=== PATIENT | female | born 1985 | race Caucasian/White ===

== ENCOUNTER 2019-06-21 21:30 | Emergency (ER) | payer OTHER ==
--- NOTE | 2019-06-21 23:15 | ER Document Report ---
ED General - General Chief Complaint: OB Problem (<20wks) Stated Complaint: DIZZINESS Time Seen by Provider: 06/21/19 23:15 TRAVEL OUTSIDE OF THE [place] IN LAST 30 DAYS: No - HPI Patient complains to provider of: vaginal bleeding in Notes: sharla is a presenting to ED for evaluation of lower abdominal cramping and some light intermittent vaginal bleeding she is approx 6-7 weeks by LMP has not established w/ obgyn yet no fever, chills she does feel dizzy intermittently some mild nausea but minimal vomiting she denies back pain and notes that her abdomen is a cramping only kind of pain and never gets too severe denies urinary pain she denies receiving rhogam w/ previous pregnancies but is unsure of blood type - Related Data Allergies/Adverse Reactions: Sulfa (Sulfonamide Antibiotics) Allergy (Verified 06/21/19 22:19) Past Medical History - General Last Menstrual Period: 05/03/19 - Social History Smoking Status: Never Smoker Chew tobacco use (# tins/day): No Frequency of alcohol use: None Drug Abuse: None Family History: Reviewed & Not Pertinent Patient has suicidal ideation: No Patient has homicidal ideation: No Review of Systems - Review of Systems Constitutional: No symptoms reported EENT: No symptoms reported Cardiovascular: No symptoms reported Respiratory: No symptoms reported Gastrointestinal: Abdominal pain, Nausea. denies: Vomiting Genitourinary: No symptoms reported Female Genitourinary: Vaginal bleeding Musculoskeletal: No symptoms reported Skin: No symptoms reported Hematologic/Lymphatic: No symptoms reported Neurological/Psychological: No symptoms reported Physical Exam - Vital signs Vitals: Temp Pulse Resp BP Pulse Ox 99.2 F 78 20 121/56 L 100 06/21/19 22:27 06/21/19 22:27 06/21/19 22:27 06/21/19 22:27 06/21/19 22:27 Interpretation: Normal - General General appearance: Appears well, Alert - HEENT Head: Normocephalic, Atraumatic Eyes: Normal Pupils: PERRL - Respiratory Respiratory status: No respiratory distress Chest status: Nontender Breath sounds: Normal Chest palpation: Normal - Cardiovascular Rhythm: Regular Heart sounds: Normal auscultation Murmur: No - Abdominal Inspection: Normal Distension: No distension Bowel sounds: Normal Tenderness: Nontender Organomegaly: No organomegaly - Back Back: Normal, Nontender - Extremities General upper extremity: Normal inspection, Nontender, Normal color, Normal ROM, Normal temperature General lower extremity: Normal inspection, Nontender, Normal color, Normal ROM, Normal temperature, Normal weight bearing. No: Rk's sign - Neurological Neuro grossly intact: Yes Cognition: Normal Orientation: AAOx4 Eldena Coma Scale Eye Opening: Spontaneous Avery Coma Scale Verbal: Oriented Eldena Coma Scale Motor: Obeys Commands Avery Coma Scale Total: 15 Speech: Normal Motor strength normal: LUE, RUE, LLE, RLE Sensory: Normal - Psychological Associated symptoms: Normal affect, Normal mood - Skin Skin Temperature: Warm Skin Moisture: Dry Skin Color: Normal Course - Re-evaluation Re-evalutation: 06/22/19 00:59 well appearing patient with IUP on US recommend outpt obgyn follow up for care - Vital Signs Vital signs: Temp Pulse Resp BP Pulse Ox 99.2 F 78 20 121/56 L 100 06/21/19 22:27 06/21/19 22:27 06/21/19 22:27 06/21/19 22:27 06/21/19 22:27 - Laboratory Result Diagrams: 06/21/19 22:38 06/21/19 22:45 Laboratory results interpreted by me: 06/21/19 06/21/19 06/21/19 22:38 22:42 22:45 WBC 13.3 H Absolute Neuts (auto) 8.8 H Sodium 136.9 L Beta HCG, Quant Urine HCG, Qual POSITIVE H 06/21/19 22:45 WBC Absolute Neuts (auto) Sodium Beta HCG, Quant 590898.00 H Urine HCG, Qual - Diagnostic Test Radiology reviewed: Image reviewed, Reports reviewed Discharge - Discharge Clinical Impression: Threatened Condition: Stable Disposition: HOME, SELF-CARE Instructions: Bleeding During Early ([facility]), Threatened Miscarriage ([facility]) Additional Instructions: follow up with obgyn as scheduled return to the ED with worsening take a vitamin daily Referrals: LEIA SABA MD [ACTIVE STAFF] - Follow up as needed
[2019-06-21 23:18] LABS: ABSOLUTE BASOPHILS # (AUTO) 0.1 10^3/uL (0.0-0.2); ABSOLUTE EOSINOPHILS # (AUTO) 0.2 10^3/uL (0.0-0.6); ABSOLUTE LYMPHOCYTES (AUTO) 3.3 10^3/uL (0.5-4.7); ABSOLUTE MONOCYTES (AUTO) 0.9 10^3/uL (0.1-1.4); ABSOLUTE NEUT (AUTO) 8.8 10^3/uL (1.7-8.2); BASOPHILS % (AUTO) 0.4 % (0-2); EOSINOPHILS % (AUTO) 1.7 % (0-6); HEMATOCRIT 37.2 % (36.0-47.0); HEMOGLOBIN 12.4 g/dL (12.0-15.5); LYMPHOCYTES % (AUTO) 24.9 % (13-45); MEAN CORPUSCULAR HGB CONC 33.3 g/dL (32.0-36.0); MEAN CORPUSCULAR VOLUME 87 fl (80-97); MONOCYTES % (AUTO) 7.1 % (3-13); PLATELET COUNT 320 10^3/uL (150-450); RED BLOOD COUNT 4.26 10^6/uL (3.72-5.28); RED CELL DISTRIBUTION WIDTH 13.4 % (11.5-14.0); SEGMENTED NEUTROPHILS % (AUTO) 65.9 % (42-78); TOTAL CELLS COUNTED % (AUTO) 100 %; WHITE BLOOD COUNT 13.3 10^3/uL (4.0-10.5)
[2019-06-21 23:24] LABS: APPEARANCE,URINE CLEAR; BILIRUBIN,URINE NEGATIVE (NEGATIVE); COLOR,URINE STRAW; GLUCOSE, URINE NEGATIVE (NEGATIVE); KETONES,URINE NEGATIVE (NEGATIVE); LEUKOCYTE ESTERASE,URINE NEGATIVE (NEGATIVE); NITRITE,URINE NEGATIVE (NEGATIVE); PROTEIN,URINE NEGATIVE (NEGATIVE); UROBILINOGEN,URINE NEGATIVE mg/dL (<2.0)
[2019-06-21] MEDS ORDERED: NORMAL SALINE 1000 ML 1,000 ML IV ONE (23:26)
[2019-06-21 23:36] LABS: ALBUMIN 4.4 g/dL (3.5-5.0); ALKALINE PHOSPHATASE 62 U/L (38-126); ANION GAP 10 (5-19); ASPARTATE AMINO TRANSFERASE 28 U/L (14-36); BILIRUBIN,DIRECT 0.1 mg/dL (0.0-0.4); BILIRUBIN,TOTAL 0.3 mg/dL (0.2-1.3); BLOOD UREA NITROGEN 12 mg/dL (7-20); CALCIUM 9.9 mg/dL (8.4-10.2); CARBON DIOXIDE 27 mmol/L (22-30); CHLORIDE 100 mmol/L (98-107); GLUCOSE 87 mg/dL (75-110); TOTAL PROTEIN 7.7 g/dL (6.3-8.2)
--- NOTE | 2019-06-22 00:43 | RADIOLOGY REPORT (SQ) ---
EXAM DESCRIPTION: US LESS THAN 14 WEEKS COMPLETED DATE/TME: 06/21/2019 00:00 CLINICAL HISTORY: 33 years Female, vaginal bleeding/ COMPARISON: None TECHNIQUE: Transabdominal. LIMITATIONS: None. FINDINGS: Living intrauterine fetus measures 6w6d with JUDI of 02/09/2020. Cardiac activity is 147-bpm. Maxeys-rump length is 0.85-cm. 4.4-cm right ovary, 3.1-cm left ovary, 2.6-cm likely right corpus luteum, 3.2-cm cervical length, and no free fluid appear otherwise unremarkable. IMPRESSION: Living 1st trimester intrauterine gestation. No evidence of complication.
[2019-06-22 01:42] VITALS: BP 94/52
== END 2019-06-22 01:42 | disposition home or self-care (01) ==
LOC: ER 21:30
DX: O20.0 Threatened abortion (principal); O26.891 Other specified pregnancy related conditions, first trimester; R10.30 Lower abdominal pain, unspecified; R11.0 Nausea; Z3A.01 Less than 8 weeks gestation of pregnancy; Z88.2 Allergy status to sulfonamides
CPT/HCPCS: 99284; 96360; 36415; 84702; 85025; 81025; 80053; 81001; 76801; 93976; J7030

== ENCOUNTER 2019-08-30 17:17 | Emergency (ER) | payer OTHER, MEDICAID ==
[2019-08-30] MEDS ORDERED: NORMAL SALINE 1000 ML 1,000 ML IV ONE (18:32)
--- NOTE | 2019-08-30 18:34 | ER Document Report ---
ED Medical Screen (RME) - General Chief Complaint: Palpitations Stated Complaint: HIGH HEART RATE Time Seen by Provider: 08/30/19 18:28 Mode of Arrival: Ambulatory Information source: Patient Notes: Patient presents complaining of rapid heart rate. Patient states that she gets about 2 episodes a day for the past week in which her heart rate will race and then come back down to normal. Patient states that she does get nauseated and feel lightheaded. Patient is currently 17 weeks . Patient denies any complications during the thus far. I have greeted and performed a rapid initial assessment of this patient. A comprehensive ED assessment and evaluation of the patient, analysis of test results and completion of the medical decision making process will be conducted by additional ED providers. TRAVEL OUTSIDE OF THE [place] IN LAST 30 DAYS: No - Related Data Allergies/Adverse Reactions: Sulfa (Sulfonamide Antibiotics) Allergy (Verified 08/30/19 18:21) Home Medications: Past Medical History - Social History Chew tobacco use (# tins/day): No Frequency of alcohol use: None Drug Abuse: None Physical Exam - Vital signs Vitals: Temp Resp Pulse Ox 98.4 F 20 99 08/30/19 17:17 08/30/19 17:17 08/30/19 17:17 - General General appearance: Appears well, Alert In distress: None - Cardiovascular Rhythm: Regular. No: Tachycardia Heart sounds: S1 appreciated, S2 appreciated Course - Vital Signs Vital signs: Temp Pulse Resp BP Pulse Ox 98.4 F 76 20 129/63 H 99 08/30/19 17:36 08/30/19 17:36 08/30/19 17:36 08/30/19 17:36 08/30/19 17:36
[2019-08-30 19:13] LABS: ABSOLUTE BASOPHILS # (AUTO) 0.2 10^3/uL (0.0-0.2); ABSOLUTE EOSINOPHILS # (AUTO) 0.2 10^3/uL (0.0-0.6); ABSOLUTE NEUT (AUTO) 9.7 10^3/uL (1.7-8.2); BASOPHILS % (AUTO) 1.1 % (0-2); EOSINOPHILS % (AUTO) 1.6 % (0-6); HEMOGLOBIN 11.4 g/dL (12.0-15.5); LYMPHOCYTES % (AUTO) 21.4 % (13-45); MEAN CORPUSCULAR HEMOGLOBIN 29.7 pg (27.0-33.4); MEAN CORPUSCULAR HGB CONC 33.5 g/dL (32.0-36.0); MEAN CORPUSCULAR VOLUME 89 fl (80-97); MONOCYTES % (AUTO) 7.3 % (3-13); PLATELET COUNT 264 10^3/uL (150-450); RED BLOOD COUNT 3.83 10^6/uL (3.72-5.28); RED CELL DISTRIBUTION WIDTH 13.5 % (11.5-14.0); SEGMENTED NEUTROPHILS % (AUTO) 68.6 % (42-78); TOTAL CELLS COUNTED % (AUTO) 100 %; WHITE BLOOD COUNT 14.1 10^3/uL (4.0-10.5)
[2019-08-30 19:48] LABS: ANION GAP 10 (5-19); BLOOD UREA NITROGEN 12 mg/dL (7-20); CALCIUM 9.6 mg/dL (8.4-10.2); CARBON DIOXIDE 23 mmol/L (22-30); CHLORIDE 102 mmol/L (98-107); GLUCOSE 90 mg/dL (75-110); POTASSIUM 3.8 mmol/L (3.6-5.0)
--- NOTE | 2019-08-30 20:06 | EKG REPORT ---
SEVERITY:- NORMAL ECG - SINUS RHYTHM : Confirmed by: Sumanth Armendariz 30-Aug-2019 20:05:47
--- NOTE | 2019-08-30 20:27 | ER Document Report ---
ED General - General Chief Complaint: Palpitations Stated Complaint: HIGH HEART RATE Time Seen by Provider: 08/30/19 18:28 Primary Care Provider: ANUSHKA ASHLEY MD [Primary Care Provider] - Follow up as needed Mode of Arrival: Ambulatory Notes: Patient is a 33-year-old female that comes emergency department for chief complaint of episodes where she will feel lightheaded and she will feel like her heart rate elevates. She states this has happened a couple times a day intermittently over the past week or so. She denies having this in the past. She is at 17 weeks gestation at this time. She denies abdominal pain, chest pain, shortness of breath, passing out, fever, vaginal bleeding or discharge. She denies any current symptoms. She states once the dizziness became bad enough she had to lie down and then it resolved. She is not on any daily medications, she reports rare caffeine, she states she is staying hydrated. TRAVEL OUTSIDE OF THE [place] IN LAST 30 DAYS: No - Related Data Allergies/Adverse Reactions: Sulfa (Sulfonamide Antibiotics) Allergy (Verified 08/30/19 18:21) Home Medications: Past Medical History - General Information source: Patient - Social History Smoking Status: Former Smoker Chew tobacco use (# tins/day): No Frequency of alcohol use: None Drug Abuse: None Lives with: Family Family History: Reviewed & Not Pertinent Patient has suicidal ideation: No Patient has homicidal ideation: No Surgical Hx: Negative - Immunizations Immunizations up to date: Yes Hx Diphtheria, Pertussis, Tetanus Vaccination: Yes Review of Systems - Review of Systems Constitutional: See HPI EENT: No symptoms reported Cardiovascular: See HPI Respiratory: No symptoms reported Gastrointestinal: No symptoms reported Genitourinary: No symptoms reported Female Genitourinary: No symptoms reported Musculoskeletal: No symptoms reported Skin: No symptoms reported Hematologic/Lymphatic: No symptoms reported Neurological/Psychological: See HPI Physical Exam - Vital signs Vitals: Temp Resp Pulse Ox 98.4 F 20 99 08/30/19 17:17 08/30/19 17:17 08/30/19 17:17 - Notes Notes: GENERAL: Alert, interacts well. No acute distress. HEAD: Normocephalic, atraumatic. EYES: Pupils equal, round, and reactive to light. Extraocular movements intact. ENT: Oral mucosa moist, tongue midline. Oropharynx unremarkable. Airway patent. NECK: Full range of motion. Supple. Trachea midline. LUNGS: Clear to auscultation bilaterally, no wheezes, rales, or rhonchi. No respiratory distress. HEART: Regular rate and rhythm. No murmur ABDOMEN: Soft, non-tender. Bowel sounds present in all 4 quadrants. EXTREMITIES: Moves all 4 extremities spontaneously. No edema, normal radial and dorsalis pedis pulses bilaterally. No cyanosis. BACK: no cervical, thoracic, lumbar midline tenderness. No saddle anesthesia, normal distal neurovascular exam. Moves all extremities in full range of motion. NEUROLOGICAL: Alert and oriented x3. Normal speech. Cranial nerves II through XII grossly intact. PSYCH: Normal affect, normal mood. SKIN: Warm, dry, normal turgor. No rashes or lesions noted. Course - Re-evaluation Re-evalutation: Vital signs unremarkable and monitoring on the monitor here is unremarkable. EKG unremarkable. CBC, chemistry unremarkable. Patient with no current symptoms. Patient with description of symptoms where she will become lightheaded, heart rate will elevate, and she can make the symptoms resolved by lying flat. Patient second trimester . She has no chest pain, syncope, shortness of breath, tachycardia, lower extremity swelling, recent travel or surgery, history of blood clots, smoking, or family history of blood clots. I have a very low suspicion of acute intrathoracic etiology. I discussed at length with patient. Discussed details, work-up, recommendations, precautions, and return instructions. Patient states appreciation and agreement and requests discharge. Stable time of discharge. She is going home with her who also states understanding and agreement. - Vital Signs Vital signs: Temp Pulse Resp BP Pulse Ox 98.2 F 80 20 109/60 98 08/30/19 20:42 08/30/19 20:42 08/30/19 20:42 08/30/19 20:42 08/30/19 20:42 - Laboratory Result Diagrams: 08/30/19 19:00 08/30/19 19:00 Laboratory results interpreted by me: 08/30/19 08/30/19 19:00 19:00 WBC 14.1 H Hgb 11.4 L Hct 34.0 L Absolute Neuts (auto) 9.7 H Sodium 135.4 L - EKG Interpretation by Me Additional EKG results interpreted by me: EKG shows sinus rhythm at a rate of 75, QTC of 438, normal axis, no T wave inversions or ST segment changes in consecutive leads. Machine reads as normal. Discharge - Discharge Clinical Impression: Rapid heart rate, Dizziness Condition: Stable Disposition: HOME, SELF-CARE Additional Instructions: Your evaluation here on monitoring, EKG, and labs are reassuring. Your symptoms are suggestive of being related to blood return which unfortunately could worsen as you progress in but hopefully will resolve after delivery. Remember to stay hydrated and not skip meals, if you do become lightheaded lay down and put your feet above the level of your heart if possible. Follow-up with your [facility] for additional evaluation and management. Return if you worsen including chest pain, difficulty breathing, passing out, or any other concerning or worsening symptoms. Referrals: ANUSHKA ASHLEY MD [Primary Care Provider] - Follow up as needed
[2019-08-30 20:44] VITALS: BP 109/60
== END 2019-08-30 20:47 | disposition home or self-care (01) ==
LOC: ER 17:17
DX: O26.92 Pregnancy related conditions, unspecified, second trimester (principal); R00.0 Tachycardia, unspecified; R42 Dizziness and giddiness; R00.2 Palpitations; Z3A.17 17 weeks gestation of pregnancy; Z88.2 Allergy status to sulfonamides
CPT/HCPCS: 93005; 99285; 96360; 36415; 85025; 80048; 93010; J7030

== ENCOUNTER 2019-11-28 18:49 | Outpatient (CLI) | payer OTHER, MEDICAID ==
[2019-11-28 19:43] LABS: APPEARANCE,URINE CLEAR; BILIRUBIN,URINE NEGATIVE (NEGATIVE); COLOR,URINE YELLOW; GLUCOSE, URINE NEGATIVE (NEGATIVE); KETONES,URINE NEGATIVE (NEGATIVE); LEUKOCYTE ESTERASE,URINE NEGATIVE (NEGATIVE); NITRITE,URINE NEGATIVE (NEGATIVE); PROTEIN,URINE NEGATIVE (NEGATIVE); URINE SPECIFIC GRAVITY 1.013; UROBILINOGEN,URINE NEGATIVE mg/dL (<2.0)
[2019-11-28 19:59] LABS: URINE AMPHETAMINES SCREEN NEGATIVE; URINE BARBITURATES SCREEN NEGATIVE; URINE BENZODIAZEPINES SCREEN NEGATIVE; URINE COCAINE SCREEN NEGATIVE; URINE MARIJUANA (THC) SCREEN NEGATIVE; URINE METHADONE SCREEN NEGATIVE; URINE PHENCYCLIDINE SCREEN NEGATIVE
== END 2019-11-28 20:03 | disposition home or self-care (01) ==
LOC: LC 18:49
PROVIDERS: ATTEND Obstetrics & Gynecology Gynecology
PROC: 4A1HXCZ Monitoring of Products of Conception, Cardiac Rate, External Approach (ICD-10-PCS; principal; 2019-11-28)
DX: O47.03 False labor before 37 completed weeks of gestation, third trimester (principal); Z3A.29 29 weeks gestation of pregnancy
CPT/HCPCS: 80307; 81001; 84112

== ENCOUNTER 2020-01-20 04:58 | Inpatient (IN) | payer OTHER, MEDICAID ==
[2020-01-13 13:29] LABS: ABSOLUTE EOSINOPHILS # (AUTO) 0.1 10^3/uL (0.0-0.6); ABSOLUTE LYMPHOCYTES (AUTO) 2.2 10^3/uL (0.5-4.7); ABSOLUTE MONOCYTES (AUTO) 1.1 10^3/uL (0.1-1.4); BASOPHILS % (AUTO) 0.2 % (0-2); EOSINOPHILS % (AUTO) 0.8 % (0-6); HEMATOCRIT 31.9 % (36.0-47.0); HEMOGLOBIN 10.6 g/dL (12.0-15.5); LYMPHOCYTES % (AUTO) 20.8 % (13-45); MEAN CORPUSCULAR HEMOGLOBIN 27.1 pg (27.0-33.4); MEAN CORPUSCULAR HGB CONC 33.4 g/dL (32.0-36.0); MEAN CORPUSCULAR VOLUME 81 fl (80-97); MONOCYTES % (AUTO) 10.7 % (3-13); PLATELET COUNT 291 10^3/uL (150-450); RED BLOOD COUNT 3.93 10^6/uL (3.72-5.28); RED CELL DISTRIBUTION WIDTH 15.7 % (11.5-14.0); SEGMENTED NEUTROPHILS % (AUTO) 67.5 % (42-78); TOTAL CELLS COUNTED % (AUTO) 100 %; WHITE BLOOD COUNT 10.4 10^3/uL (4.0-10.5)
[2020-01-13 13:35] LABS: APPEARANCE,URINE CLOUDY; BILIRUBIN,URINE NEGATIVE (NEGATIVE); COLOR,URINE YELLOW; GLUCOSE, URINE NEGATIVE (NEGATIVE); KETONES,URINE NEGATIVE (NEGATIVE); LEUKOCYTE ESTERASE,URINE SMALL (NEGATIVE); NITRITE,URINE NEGATIVE (NEGATIVE); PROTEIN,URINE NEGATIVE (NEGATIVE); UROBILINOGEN,URINE NEGATIVE mg/dL (<2.0)
[2020-01-13 13:55] LABS: URINE AMPHETAMINES SCREEN NEGATIVE; URINE BARBITURATES SCREEN NEGATIVE; URINE BENZODIAZEPINES SCREEN NEGATIVE; URINE COCAINE SCREEN NEGATIVE; URINE MARIJUANA (THC) SCREEN NEGATIVE; URINE METHADONE SCREEN NEGATIVE; URINE PHENCYCLIDINE SCREEN NEGATIVE
[2020-01-20] MEDS ORDERED: CEFAZOLIN SODIUM 2 GM in DEXTROSE 5%-WATER 100 ML IV PRN (05:00)
[2020-01-20] MEDS ORDERED: LIDOCAINE 0.5% INJ-PF (5 MG/ML) 50 ML SDV SUBCUT PRN (05:00)
[2020-01-20] MEDS ORDERED: RINGERS SOLUTION,LACTATED 1,000 ML IV ONE (05:00)
[2020-01-20] MEDS ORDERED: LACTATED RINGERS 1000 ML IV PRN (05:00)
[2020-01-20] MEDS ORDERED: OXYTOCIN/0.9 % SODIUM CHLORIDE 30 UNIT/500 ML RTUINJ ONE (07:31)
[2020-01-20] MEDS ORDERED: MORPHINE SULFATE 10 MG/ML INJ ONE (07:31)
[2020-01-20] MEDS ORDERED: MIDAZOLAM 2 MG/2 ML INJ ONE (07:31)
[2020-01-20] MEDS ORDERED: OXYTOCIN 10 UNIT/ML VIAL ONE (07:31)
[2020-01-20] MEDS ORDERED: ONDANSETRON HCL INJ/PF 4 MG/2 ML SDV ONE (07:32)
[2020-01-20] MEDS ORDERED: CEFAZOLIN 1 GM/D5W RTU 2 GM/100 ML RTUPB IV ONE (07:36)
[2020-01-20] MEDS ORDERED: MORPHINE SULFATE 10 MG/ML INJ IV PRN (08:13)
[2020-01-20] MEDS ORDERED: MEPERIDINE HCL/PF INJ 25 MG/1 ML DISP.SYRIN IV PRN (08:13)
[2020-01-20] MEDS ORDERED: PROMETHAZINE HCL INJ 25 MG/1 ML VIAL IV PRN ×3 (08:13→09:18)
[2020-01-20] MEDS ORDERED: ONDANSETRON HCL INJ/PF 4 MG/2 ML SDV IV PRN (08:13)
[2020-01-20] MEDS ORDERED: DIPHENHYDRAMINE HCL 50 MG/ML VIAL IV PRN (08:13)
[2020-01-20] MEDS ORDERED: FENTANYL CITRATE INJ/PF 100 MCG/2 ML AMPUL IV PRN ×3 (08:13)
[2020-01-20] MEDS ORDERED: DIPH/PERTUSS(ACELL)/TETANUS VAC/PF 0.5 ML SYR (>=10YO) IM PRN (09:18)
[2020-01-20] MEDS ORDERED: MEASLES,MUMPS&RUBELLA VACC/PF 0.5 ML VIAL SUBCUT PRN (09:18)
[2020-01-20] MEDS ORDERED: ACETAMINOPHEN 325 MG TABLET PO PRN (09:18)
[2020-01-20] MEDS ORDERED: SIMETHICONE 80 MG TAB.CHEW PO PRN (09:18)
[2020-01-20] MEDS ORDERED: OXYCODONE-ACETAMINOPHEN 5-325 MG TABLET PO PRN (09:18)
[2020-01-20] MEDS ORDERED: HYDROMORPHONE HCL INJ/PF 2 MG/ML AMPULE IV PRN (09:29)
--- NOTE | 2020-01-20 09:55 | Operative Report ---
Operative Report DATE OF SURGERY: 01/20/20 PREOPERATIVE DIAGNOSIS: History of prior x2 with a verticle incision in G2 section necessitating a repeat section between 37-38 weeks this . Currently IUP at 37+ wks. Has A2GDM on Glyburide daily, obesity and unwanted fertility POSTOPERATIVE DIAGNOSIS: As above plus dense scar tissue anterior abdominal wall. OPERATION: Repeat section and bilateral tubal ligation SURGEON: RANDA COLON ANESTHESIA: Spinal TISSUE REMOVED OR ALTERED: Placenta COMPLICATIONS: None ESTIMATED BLOOD LOSS: 500cc INTRAOPERATIVE FINDINGS: Dense scar tissue between anterior abdominal wall and rectus fascia. Scar noted on anterior uterus that is verticle. Viable female infant at 8 lb and 5 oz with Apgars at 8/9 at one and 5 minutes respectfully. Nuchal cord x1, loose. Placenta grossly normal. PROCEDURE: IV fluids: per anesthesia record Urinary output: 250 cc Findings: Normal-appearing uterus other than vertical scar on uterus, bilateral fallopian tubes and ovaries normal. Viable female infant with Apgars of 8 and 9, at 1 and 5 minutes respectively. Position: To recovery room in stable condition Description of procedure: The patient was taken to the operating room and spinal anesthesia was administered and found to be adequate. She was then placed on the OR table in the supine position with a slight leftward tilt. Patient was prepped and draped in usual sterile fashion. Ancef 2 gms was given IV prior to the procedure for infection prophylaxis. Timeout was taken. A Pfannenstiel skin incision was then made approximately 3 cm above the pubic symphysis at the level of previous scar and carried down to level the rectus fascia. The rectus fascia was then nicked in the midline with a scalpel and the fascial incision was extended laterally with use of curved Shin scissors. The rectus fascia was then grasped with 2 Kocker clamps elevated and the underlying rectus muscle was dissected off both bluntly and sharply. Scar tissue noted as above. Any bleeding controlled with cautery. The rectus muscles were then split in the midline and the peritoneum was entered. The peritoneal incision was then extended by manually stretching the peritoneum. The bladder blade was positioned. The bladder was noted to be out of harm's way. A scalpel was then used in the lower uterine for the hysterotomy, slowly until amniotomy was obtained a large amount of fluid was noted. The uterine incision was then manually stretched. The was noted to be in vertex postion. Using a surgeons hand, the head was elevated and brought to the hysterotomy incision. The head then delivered with minmal difficulty. The shoulders and the rest of the body followed immediately. The cord was cut clamped and the was handed off to the nurse awaiting. Infant was crying prior to hand off. The placenta was manually delivered. Using a lap gauze the uterus was cleared of all clots and debris. The uterus was then exteriorized and a bladder blade was repositioned. The uterine incision was then closed with 0 Chromic suture in a running locked fashion. A second layer of the same suture was used in a running locked imbricated fashion. The uterine incision was inspected and noted to be hemostatic. The posterior aspect of the uterus was then inspected and anatomy was seen as above. The right fallopian tube was identified and traced to the fimbriated end. A filshie clip was placed approximately 2 cm from the uterine cornu. Clip surrounded the tube in its entirety. Blanching noted and hemostasis. The left fallopian tube was identified and traced to the fimbriated end. A filshie clip was placed approximately 2 cm from the uterine cornu. Clip surrounded the tube in its entirety. Blanching noted and hemostasis. The uterus was returned to its normal anatomic position within the abdominal cavity. Warm saline irrigation was used to clear all clots and debris from the abdomen. The uterine incision was inspected once more and noted to remain hemostatic. The bladder blade was removed and the peritoneum was closed with 2-0 chromic in a running fashion. The rectus muscles were then reapproximated and the rectus fascia was closed with a #1 PDS in a running fashion. The subcutaneous tissue was then inspected and any bleeding was controlled with Bovie electrocautery. The subcutaneous tissue was then closed with 2-0 Plain Gut suture in a running fashion. The skin was then closed with 4-0 Monocryl in a running subcuticular fashion. The skin incision was then clean dried and Dermabond was applied over the skin incision. All instrument sponge and needle counts were correct x3 for the procedure the patient tolerated the procedure well. She will proceed to recovery room in stable condition
[2020-01-20] MEDS ORDERED: KETOROLAC TROMETHAMINE INJ/PF 30 MG/1 ML SDV ONE (10:03)
[2020-01-20] MEDS ORDERED: ACETAMINOPHEN 1,000 MG/100 ML RTUPB IV ONE (10:03)
--- NOTE | 2020-01-20 10:05 | PDOC DELIVERY SUMMARY ---
Delivery Summary - Maternal Hx : III Hx # Term Pregnancies: 3 Hx # Pregnancies: 0 Hx Total # of Abortions (Sponateous & Elective): 0 JUDI: 02/07/20 Gestational Age: 37+3 Fluids: Clear - Delivery Presentation: Vertex Support Person Present: Yes Location: OR : Scheduled, Repeat Placenta: Within Normal Limits Number of Vessels (Cord): 3 Nuchal Cord: Yes - loose x1 - Medications Type of Anesthesia:: Spinal - Delivery Personnel MD: RANDA COLON
[2020-01-20] MEDS: KETOROLAC TROMETHAMINE INJ/PF 30 MG/1 ML SDV IV SCH ×2 (10:07→17:34)
[2020-01-20] MEDS ORDERED: HYDROMORPHONE HCL INJ/PF 2 MG/ML AMPULE ONE (10:23)
[2020-01-20] MEDS: DOCUSATE SODIUM 100 MG CAPSULE PO SCH ×2 (11:45→17:33)
[2020-01-20] MEDS: PRENATAL VITAMIN W DHA CAPSULE PO SCH (11:45)
[2020-01-20] MEDS ORDERED: PHENYLEPHRINE HCL INJ/PF 10 MG/1 ML SDV ONE (13:43)
[2020-01-20] MEDS: OXYCODONE-ACETAMINOPHEN 5-325 MG TABLET PO PRN ×2 (15:34→20:49)
[2020-01-21] MEDS: OXYCODONE-ACETAMINOPHEN 5-325 MG TABLET PO PRN ×2 (01:02→14:54)
[2020-01-21] MEDS: KETOROLAC TROMETHAMINE INJ/PF 30 MG/1 ML SDV IV SCH (02:38)
[2020-01-21 07:42] LABS: HEMATOCRIT 31.3 % (36.0-47.0); HEMOGLOBIN 10.3 g/dL (12.0-15.5); MEAN CORPUSCULAR HEMOGLOBIN 26.5 pg (27.0-33.4); MEAN CORPUSCULAR HGB CONC 32.8 g/dL (32.0-36.0); MEAN CORPUSCULAR VOLUME 81 fl (80-97); PLATELET COUNT 249 10^3/uL (150-450); RED BLOOD COUNT 3.88 10^6/uL (3.72-5.28); RED CELL DISTRIBUTION WIDTH 16.7 % (11.5-14.0)
[2020-01-21] MEDS: IBUPROFEN 800 MG TABLET PO SCH ×2 (10:40→18:03)
[2020-01-21] MEDS: PRENATAL VITAMIN W DHA CAPSULE PO SCH (10:40)
[2020-01-21] MEDS: DOCUSATE SODIUM 100 MG CAPSULE PO SCH ×2 (10:40→18:03)
[2020-01-21] MEDS ORDERED: PROMETHAZINE HCL INJ 25 MG/1 ML VIAL IV PRN (11:30)
[2020-01-21] MEDS ORDERED: DIPH/PERTUSS(ACELL)/TETANUS VAC/PF 0.5 ML SYR (>=10YO) IM PRN (11:30)
[2020-01-21] MEDS ORDERED: MEASLES,MUMPS&RUBELLA VACC/PF 0.5 ML VIAL SUBCUT PRN (11:30)
--- NOTE | 2020-01-21 15:07 | PDOC PROGRESS REPORT ---
Subjective-OB Progress Note for:: 01/21/20 Subjective: 34yo G now P s/p repeat ppd1. Ambulating and voiding without difficulty. Reports pain well controlled with medication, no concerns today. Physical Exam (OB) Vital Signs: Temp Pulse Resp BP Pulse Ox 98.0 F 84 16 106/59 L 96 01/21/20 07:32 01/21/20 07:32 01/21/20 07:32 01/21/20 07:32 01/21/20 07:32 Intake & Output 01/20/20 01/21/20 01/22/20 06:59 06:59 06:59 Intake Total 1800 Output Total 1345 Balance 455 Weight 99.79 kg - General General Appearance: Appears well In distress: None - PIH/Pre-Eclampsia Clonus: Negative Headache: Absent Epigastric Pain: No Visual Changes: No - Incision: Well Approximated Closure Type: Surgical Glue - Lochia Lochia Amount: Small 10-25 ml Lochia Color: Rubra/Red - Abdomen Description: Soft Hernia Present: No Fundal Description: Firm, Midline Fundal Height: u/u - u/2 - Respiratory Respiratory Status: No respiratory distress - Extremities Upper extremity: Normal inspection Lower extremities: Normal inspection - Neurological Cognition: Normal Orientation: AAOx4 - Psychological Associated symptoms: Normal affect, Normal mood Objective-Diagnostic Laboratory: 01/21/20 07:05 01/21/20 07:05 WBC 12.0 H RBC 3.88 Hgb 10.3 L Hct 31.3 L MCV 81 MCH 26.5 L MCHC 32.8 RDW 16.7 H Plt Count 249 Assessment and Plan(PN) - Assessment and Plan (1) Maternal care for vertical scar from previous delivery Is this a current diagnosis for this admission?: Yes Plan: routine pp care, delivered (2) Anemia complicating , third trimester Is this a current diagnosis for this admission?: Yes Plan: increase dietary iron and FeSO4 BID (3) Status post repeat low transverse section Is this a current diagnosis for this admission?: Yes Plan: routine pp care (4) Gestational diabetes mellitus (GDM) Qualifiers: Gestational diabetes mellitus control: oral hypoglycemic-controlled Trimester: unspecified trimester Qualified Code(s): O24.415 - Gestational diabetes mellitus in , controlled by oral hypoglycemic drugs Is this a current diagnosis for this admission?: Yes Plan: will need fasting glucose at pp visit (5) Sterilization Is this a current diagnosis for this admission?: Yes Plan: routine pp care - Time Spent with Patient Time with patient: Less than 15 minutes Medications reviewed and adjusted accordingly: Yes - Disposition Anticipated Discharge: Home Within: within 24 hours
[2020-01-22] MEDS: IBUPROFEN 800 MG TABLET PO SCH ×3 (01:52→17:27)
[2020-01-22] MEDS: OXYCODONE-ACETAMINOPHEN 5-325 MG TABLET PO PRN ×2 (06:22→20:50)
[2020-01-22] MEDS: DOCUSATE SODIUM 100 MG CAPSULE PO SCH ×2 (11:16→17:27)
[2020-01-22] MEDS: PRENATAL VITAMIN W DHA CAPSULE PO SCH (11:16)
--- NOTE | 2020-01-22 13:29 | PDOC PROGRESS REPORT ---
Subjective-OB Progress Note for:: 01/22/20 Subjective: Pt doing well, no concerns. She reports light bleeding, reg diet and voiding well. She is tired, denies pain. Physical Exam (OB) Vital Signs: Temp Pulse Resp BP Pulse Ox 98.1 F 80 18 137/78 H 100 01/22/20 11:56 01/22/20 11:56 01/22/20 11:56 01/22/20 11:56 01/22/20 11:56 Intake & Output 01/21/20 01/22/20 01/23/20 06:59 06:59 06:59 Intake Total 1800 960 Output Total 1345 Balance 455 960 - PIH/Pre-Eclampsia Clonus: Negative Headache: Absent Epigastric Pain: No Visual Changes: No - Dressing Removed: No - open to air, surg glue Incision: Well Approximated Closure Type: Surgical Glue - Lochia Lochia Amount: Small 10-25 ml Lochia Color: Rubra/Red - Abdomen Description: Soft, Round Hernia Present: Yes Fundal Description: Firm, Midline Fundal Height: u/u - u/2 Objective-Diagnostic Laboratory: 01/21/20 07:05 Assessment and Plan(PN) - Assessment and Plan (1) Anemia complicating , third trimester Is this a current diagnosis for this admission?: Yes (2) Gestational diabetes mellitus (GDM) Qualifiers: Gestational diabetes mellitus control: oral hypoglycemic-controlled Trimester: unspecified trimester Qualified Code(s): O24.415 - Gestational diabetes mellitus in , controlled by oral hypoglycemic drugs Is this a current diagnosis for this admission?: Yes (3) Maternal care for vertical scar from previous delivery Is this a current diagnosis for this admission?: Yes (4) Status post repeat low transverse section Is this a current diagnosis for this admission?: Yes (5) Sterilization Is this a current diagnosis for this admission?: Yes - Time Spent with Patient Time with patient: Less than 15 minutes Medications reviewed and adjusted accordingly: Yes - Disposition Anticipated Discharge: Home Within: within 24 hours
[2020-01-23] MEDS: IBUPROFEN 800 MG TABLET PO SCH ×2 (01:07→09:07)
--- NOTE | 2020-01-23 07:42 | PDOC DISCHARGE SUMMARY ---
Impression - Admit/DC Date/PCP Admission Date/Primary Care Provider: 01/20/20 04:58 ANUSHKA ASHLEY MD Discharge Date: 01/23/20 - Discharge Diagnosis (1) Anemia complicating , third trimester Is this a current diagnosis for this admission?: Yes (2) Gestational diabetes mellitus (GDM) Is this a current diagnosis for this admission?: Yes (3) Maternal care for vertical scar from previous delivery Is this a current diagnosis for this admission?: Yes (4) Status post repeat low transverse section Is this a current diagnosis for this admission?: Yes (5) Sterilization Is this a current diagnosis for this admission?: Yes - Additional Information Resuscitation Status: Full Code Discharge Diet: Regular Discharge Activity: Balance Activity w/Rest, No Lifting Over 10 Pounds, No Lifting/Push/Pulling, Pelvic Rest, Slowly Increase Activity, No tub bath Referrals: ANUSHKA ASHLEY MD [Primary Care Provider] - Home Medications: Vits96/Iron Fum/Folic [ Tablet] 1 each PO DAILY 11/28/19 Glyburide [Diabeta 5 mg Tablet] 5 mg PO HSP PRN 01/13/20 HPI Reason(s) for Admission: Ceasarean Section-Repeat Procedures: None Intrapartum Procedure(s): : Low Cervical, Transverse Results Laboratory Results: WBC 12.0 10^3/uL (4.0-10.5) H 01/21/20 07:05 RBC 3.88 10^6/uL (3.72-5.28) 01/21/20 07:05 Hgb 10.3 g/dL (12.0-15.5) L 01/21/20 07:05 Hct 31.3 % (36.0-47.0) L 01/21/20 07:05 MCV 81 fl (80-97) 01/21/20 07:05 MCH 26.5 pg (27.0-33.4) L 01/21/20 07:05 MCHC 32.8 g/dL (32.0-36.0) 01/21/20 07:05 RDW 16.7 % (11.5-14.0) H 01/21/20 07:05 Plt Count 249 10^3/uL (150-450) 01/21/20 07:05 Lymph % (Auto) 20.8 % (13-45) 01/13/20 12:43 [place] % (Auto) 10.7 % (3-13) 01/13/20 12:43 Eos % (Auto) 0.8 % (0-6) 01/13/20 12:43 Baso % (Auto) 0.2 % (0-2) 01/13/20 12:43 Absolute Neuts (auto) 7.0 10^3/uL (1.7-8.2) 01/13/20 12:43 Absolute Lymphs (auto) 2.2 10^3/uL (0.5-4.7) 01/13/20 12:43 Absolute Monos (auto) 1.1 10^3/uL (0.1-1.4) 01/13/20 12:43 Absolute Eos (auto) 0.1 10^3/uL (0.0-0.6) 01/13/20 12:43 Absolute Basos (auto) 0.0 10^3/uL (0.0-0.2) 01/13/20 12:43 Seg Neutrophils % 67.5 % (42-78) 01/13/20 12:43 Urine Color YELLOW 01/13/20 10:40 Urine Appearance CLOUDY 01/13/20 10:40 Urine pH 6.0 (5.0-9.0) 01/13/20 10:40 Ur Specific Free[place] 1.010 01/13/20 10:40 Urine Protein NEGATIVE mg/dL (NEGATIVE) 01/13/20 10:40 Urine Glucose (UA) NEGATIVE mg/dL (NEGATIVE) 01/13/20 10:40 Urine Ketones NEGATIVE mg/dL (NEGATIVE) 01/13/20 10:40 Urine Blood NEGATIVE (NEGATIVE) 01/13/20 10:40 Urine Nitrite NEGATIVE (NEGATIVE) 01/13/20 10:40 Urine Bilirubin NEGATIVE (NEGATIVE) 01/13/20 10:40 Urine Urobilinogen NEGATIVE mg/dL (<2.0) 01/13/20 10:40 Ur Leukocyte Esterase SMALL (NEGATIVE) H 01/13/20 10:40 Urine WBC (Auto) 10 /HPF 01/13/20 10:40 Urine RBC (Auto) 3 /HPF 01/13/20 10:40 Urine Bacteria (Auto) 1+ /HPF 01/13/20 10:40 Squamous Epi Cells Auto 20 /HPF 01/13/20 10:40 Urine Mucus (Auto) RARE /LPF 01/13/20 10:40 Urine Ascorbic Acid NEGATIVE (NEGATIVE) 01/13/20 10:40 Urine Opiates Screen NEGATIVE 01/13/20 10:40 Urine Methadone Screen NEGATIVE 01/13/20 10:40 Ur Barbiturates Screen NEGATIVE 01/13/20 10:40 Ur Phencyclidine Scrn NEGATIVE 01/13/20 10:40 Ur Amphetamines Screen NEGATIVE 01/13/20 10:40 U Benzodiazepines Scrn NEGATIVE 01/13/20 10:40 Urine Cocaine Screen NEGATIVE 01/13/20 10:40 U Marijuana (THC) Screen NEGATIVE 01/13/20 10:40 Blood Type O POSITIVE 01/18/20 13:10 Antibody Screen NEGATIVE 01/18/20 13:10 Plan Plan of Treatment: f/u as scheduled for incision check at [facility] Time Spent: Less than 30 Minutes
[2020-01-23] MEDS: DOCUSATE SODIUM 100 MG CAPSULE PO SCH (09:07)
[2020-01-23] MEDS: PRENATAL VITAMIN W DHA CAPSULE PO SCH (09:07)
[2020-01-23 11:17] VITALS: BP 124/65
== END 2020-01-23 17:45 | disposition home or self-care (01) | DRG 785 ==
LOC: 2S 04:58
PROVIDERS: ADMIT Obstetrics & Gynecology; ATTEND Obstetrics & Gynecology
PROC: 10D00Z1 Extraction of Products of Conception, Low, Open Approach (ICD-10-PCS; principal; 2020-01-20)
PROC: 0UL70CZ Occlusion of Bilateral Fallopian Tubes with Extraluminal Device, Open Approach (ICD-10-PCS; 2020-01-20)
DX: O34.212 Maternal care for vertical scar from previous cesarean delivery (principal); Z30.2 Encounter for sterilization; O24.425 Gestational diabetes mellitus in childbirth, controlled by oral hypoglycemic drugs; D50.9 Iron deficiency anemia, unspecified; O99.02 Anemia complicating childbirth; O69.81X0 Labor and delivery complicated by cord around neck, without compression, not applicable or unspecified; Z88.2 Allergy status to sulfonamides; Z87.891 Personal history of nicotine dependence; Z3A.37 37 weeks gestation of pregnancy; Z37.0 Single live birth
CPT/HCPCS: 1961; 36415; 80307; 81001; 85025; 85027; 86850; 86900; 86901; 94760; 94799; J0131; J0690; J1170; J1885; J2250; J2270; J2370; J2405; J2590; J3490; J7060; J7120